=== PATIENT | male | born 1985 | race Two or more races ===

== ENCOUNTER 2019-11-06 15:46 | Emergency (ER) | payer MEDICAID ==
[~2019-11-06] VITALS: Ht 182.9 cm; Wt 90.9 kg
[~2019-11-06 15:46] MED LIST: HYDR-4383 PO
[2019-11-06 15:53] VITALS: BP 121/75
[2019-11-06] MEDS ORDERED: ALBU8HFA PO (16:17)
== END 2019-11-06 16:33 | disposition home or self-care (01) ==
LOC: ER 15:46
DX: R06.02 Shortness of breath (principal); F12.90 Cannabis use, unspecified, uncomplicated; F17.200 Nicotine dependence, unspecified, uncomplicated
CPT/HCPCS: 99283

== ENCOUNTER 2021-07-23 10:34 | Emergency (ER) | payer MEDICAID ==
[~2021-07-23] VITALS: Ht 182.9 cm; Wt 100.0 kg
[2021-07-23 10:58] VITALS: BP 136/99
[2021-07-23] MEDS ORDERED: ALBU8.5H17 IH (13:35)
== END 2021-07-23 13:55 | disposition home or self-care (01) ==
LOC: ER 10:34
DX: J40 Bronchitis, not specified as acute or chronic (principal); Z20.822 Contact with and (suspected) exposure to COVID-19; B34.9 Viral infection, unspecified; R06.02 Shortness of breath; R05.9 Cough, unspecified; R06.2 Wheezing; F12.90 Cannabis use, unspecified, uncomplicated; Z72.89 Other problems related to lifestyle; Z79.899 Other long term (current) drug therapy
CPT/HCPCS: 71045; 87635; 99284; C9803

== ENCOUNTER 2023-07-29 14:00 | Emergency (ER) | payer MEDICAID ==
[~2023-07-29] VITALS: Ht 185.4 cm; Wt 96.5 kg
[~2023-07-29 14:00] MED LIST changes: +ALBU8.5H17 IH
[2023-07-29] MEDS ORDERED: ALBU8HFA PO (16:29)
[2023-07-29] MEDS ORDERED: PRED20TA PO (16:29)
[2023-07-29 16:48] VITALS: BP 131/84; PULSE 74; RESP 18; TEMP 98.2; O2SAT 98
== END 2023-07-29 16:50 | disposition home or self-care (01) ==
LOC: ER 14:01
DX: J22 Unspecified acute lower respiratory infection (principal); R05.9 Cough, unspecified; F12.90 Cannabis use, unspecified, uncomplicated; Z72.89 Other problems related to lifestyle; Z79.899 Other long term (current) drug therapy
CPT/HCPCS: 71045; 99283